=== PATIENT | female | born 1990 | race Caucasian/White ===

== ENCOUNTER 2023-03-27 16:59 | Emergency (ER) | payer OTHER ==
[~2023-03-27] VITALS: Ht 162.6 cm; Wt 53.6 kg
[2023-03-27 17:10] VITALS: BP 146/98; PULSE 101; RESP 20; TEMP 98; O2SAT 98
[2023-03-27 17:45] LABS: BASOPHILS % (AUTO) 0.5 % (0.0-2.0); EOSINOPHILS # (AUTO) 0.2 K/uL (0-0.4); HEMATOCRIT 36.7 % (36-48); HEMOGLOBIN 12.1 g/dL (12.0-16.0); LYMPHOCYTES # (AUTO) 2.3 K/uL (2.5-16.5); LYMPHOCYTES % (AUTO) 42.9 % (20.5-51.1); MEAN CORPUSCULAR HEMOGLOBIN 30 pg (27-31); MEAN CORPUSCULAR HGB CONC 33 g/dL (33-37); MEAN CORPUSCULAR VOLUME 90.2 fL (80-94); MONOCYTES # (AUTO) 0.4 K/uL (0.8-1.0); MONOCYTES % (AUTO) 6.8 % (1.7-9.3); NEUTROPHILS # (AUTO) 2.5 K/uL (1.8-7.7); NEUTROPHILS % (AUTO) 46.8 % (42.2-75.2); PLATELET COUNT (AUTO) 281 K/uL (140-450); RED BLOOD CELL COUNT(AUTO) 4.07 MIL/uL (4.20-5.40); RED CELL DISTRIBUTION WIDTH 14.4 % (11.6-13.7); WHITE BLOOD COUNT (AUTO) 5.4 K/uL (4.8-10.8)
[2023-03-27 17:57] LABS: ALBUMIN 4.1 g/dL (3.4-5.0); ANION GAP 10.1 (8-16); CALCIUM 8.8 mg/dL (8.5-10.1); CARBON DIOXIDE 28.4 mmol/L (21-32); CREATININE 0.7 mg/dL (0.6-1.3); POTASSIUM 3.5 mmol/L (3.5-5.1); TOTAL BILIRUBIN 0.3 mg/dL (0.0-1.0); TOTAL PROTEIN, SERUM 7.2 g/dL (6.4-8.2)
[2023-03-27 18:47] VITALS: BP 111/70; PULSE 87; RESP 18; TEMP 98.4; O2SAT 98
[2023-03-27 19:00] LABS: BILIRUBIN,URINE NEGATIVE (NEGATIVE); BLOOD, URINE 3+ (NEGATIVE); COLOR,URINE YELLOW (YELLOW); LEUKOCYTE ESTERASE ,URINE 3+ (NEGATIVE); NITRITE, URINE NEGATIVE (NEGATIVE); PROTEIN,URINE NEGATIVE (NEGATIVE); UGLUCOSE NEGATIVE (NEGATIVE); UROBILINOGEN,URINE 0.2 EU/dL (0.2 - 1)
[2023-03-27 19:09] LABS: APPEARANCE,URINE HAZY (CLEAR)
[2023-03-27 19:59] LABS: BACTERIA,URINE FEW /HPF (None Seen); RBC,URINE 0-5 /HPF (0-5); WBC,URINE 0-5 /HPF (0-5)
[2023-03-27] MEDS ORDERED: NIFE90TE3 PO (20:03)
[2023-03-27] MEDS ORDERED: ATOR40TA PO (20:03)
[2023-03-27] MEDS ORDERED: METO50TE2 PO (20:03)
[2023-03-27] MEDS ORDERED: FURO80TA6 PO (20:03)
[2023-03-27] MEDS ORDERED: CLOP75TA55 PO (20:03)
[2023-03-27] MEDS ORDERED: GABA100C PO (20:03)
[2023-03-27] MEDS ORDERED: BENA40TA PO (20:03)
[2023-03-27] MEDS ORDERED: BENA20TA PO (20:03)
[2023-03-27] MEDS ORDERED: NITR100C7 PO (20:07)
[2023-03-27] MEDS ORDERED: ONDA-188 SL (20:07)
[2023-03-27] MEDS ORDERED: LOPE1TAB14 PO (20:07)
== END 2023-03-27 20:16 | disposition home or self-care (01) ==
LOC: MED 16:59
DX: N39.0 Urinary tract infection, site not specified (principal); R19.7 Diarrhea, unspecified; Z79.899 Other long term (current) drug therapy
CPT/HCPCS: 36415; 80053; 81001; 81025; 83690; 85025; 87086; 99283